=== PATIENT | male | born 1945 | race Asian ===

== ENCOUNTER 2021-01-01 18:16 | Emergency (ER) | payer MEDICARE, MEDICAID ==
[~2021-01-01] VITALS: Ht 170.2 cm; Wt 63.6 kg
[~2021-01-01 18:16] MED LIST: FISH1CAP49 PO; LISI-893 PO; METF-911 PO
[2021-01-01] MEDS ORDERED: PERTUSS(ACELL),DIPH,TET VAC/PF 0.5 ML SYRINGE IM. ONE (19:15)
[2021-01-01] MEDS ORDERED: LIDOCAINE 1% 10 ML VIAL ID ONE (19:15)
[2021-01-01 21:41] VITALS: BP 159/87
== END 2021-01-01 21:55 | disposition home or self-care (01) ==
LOC: EMS 18:19
DX: S61.213A Laceration without foreign body of left middle finger without damage to nail, initial encounter (principal); E11.9 Type 2 diabetes mellitus without complications; I10 Essential (primary) hypertension; Z79.899 Other long term (current) drug therapy; Z79.84 Long term (current) use of oral hypoglycemic drugs; W25.XXXA Contact with sharp glass, initial encounter; Y93.89 Activity, other specified; Y92.89 Other specified places as the place of occurrence of the external cause; Y99.8 Other external cause status
CPT/HCPCS: 12041; 73140; 90471; 90715; 99284; J3490; 99283